=== PATIENT | female | born 1995 | race Two or more races ===

== ENCOUNTER 2016-08-21 12:20 | Emergency (ER) | payer BC ==
[~2016-08-21] VITALS: Ht 154.9 cm; Wt 54.0 kg
[2016-08-21 12:30] VITALS: BP 133/80
[2016-08-21] MEDS ORDERED: birth control ORAL (12:36)
[2016-08-21 13:12] VITALS: BP 133/80
--- NOTE | 2016-08-23 21:53 | Emergency Room Report ---
History of Present Illness General Chief Complaint: Laceration Source: Patient Present Illness HPI 20-year-old female presents ED complaining of laceration to her left thumb. States that today she accidentally cut her left thumb using a knife. Tetanus is up-to-date. States there was "a lot of bleeding" at home. Patient is here crying, stating that she never was injured before. Pain is throbbing, 7/10, nonradiating. No other aggravating or relieving factors. Denies any other injuries. Denies any other associated symptoms Allergies: Coded Allergies: No Known Allergies (Unverified , 08/21/16) Patient History Past Medical History: none Past Surgical History: none Pertinent Family History: none Social History: Denies: alcohol use, drug use, smoking Last Menstrual Period: on period Now: No Immunizations: UTD Reviewed Nursing Documentation: PMH: Agreed, PSxH: Agreed Nursing Documentation-PMH Past Medical History: No Stated History Review of Systems All Other Systems: negative except mentioned in HPI Physical Exam Vital Signs Date Time Temp Pulse Resp B/P Pulse Ox O2 Delivery O2 Flow Rate FiO2 08/21/16 12:30 108 22 133/80 98 Room Air 08/21/16 12:33 98.4 Sp02 EP Interpretation: reviewed, normal General Appearance: no apparent distress, alert, GCS 15, non-toxic Head: normocephalic Eyes: bilateral eye PERRL, bilateral eye normal inspection ENT: normal ENT inspection Neck: normal inspection Respiratory: normal inspection Cardiovascular #1: normal inspection Gastrointestinal: normal inspection Rectal: deferred Genitourinary: no CVA tenderness Musculoskeletal: normal inspection Neurologic: alert, oriented x3, responsive, motor strength/tone normal, sensory intact, speech normal Psychiatric: normal inspection Skin: other - 2cm flap laceration to L thumb. no active bleeding. superficial Lymphatic: normal inspection Procedures Laceration/Wound Repair Laceration/Wound Repair : Consent: Emergent Wound Location: upper extremity - L thumb Wound Explored: clean Betadine Prep?: No Wound Repaired With: Dermabond Layer Closure?: No Sterile Dressing Applied?: Yes Splint Applied?: No Sling Applied?: No Patient Tolerated: Well Complications: None Medical Decision Making Diagnostic Impression: Primary Impression: Laceration ER Course Hospital Course 20-year-old F presents to ED s/p laceration L thumb using knife Clinical course Patient placed on stretcher. After initial history and physical, wound is irrigated. wound is superficial, not requiring sutures. can be repaired with dermabond. Laceration repaired w/o complication. Dressing applied. Diagnosis - laceration Stable and discharged to home. wound Care instructions given. Followup with PMD. Return to ED if any signs of infection develop Last Vital Signs Date Time Temp Pulse Resp B/P Pulse Ox O2 Delivery O2 Flow Rate FiO2 08/21/16 13:12 98.4 88 20 133/80 98 Room Air Status: improved Disposition: HOME, SELF-CARE Condition: Stable Referrals: NOT CHOSEN IPA/,REFERRING (PCP) Patient Instructions: Nonsutured Laceration Care KALYAN MIGUEL M.D. Aug 23, 2016 21:53
== END 2016-08-21 13:12 | disposition home or self-care (01) ==
LOC: EMR 12:58
DX: S61.012A Laceration without foreign body of left thumb without damage to nail, initial encounter (principal); W26.0XXA Contact with knife, initial encounter; Y93.9 Activity, unspecified; Y92.009 Unspecified place in unspecified non-institutional (private) residence as the place of occurrence of the external cause